=== PATIENT | female | born 1940 | race Caucasian/White ===

== ENCOUNTER 2019-10-22 09:43 | Emergency (ER) | payer MEDICARE, OTHER ==
[~2019-10-22] VITALS: Ht 147.3 cm; Wt 61.0 kg
[2019-10-22 09:52] VITALS: BP 110/66
[2019-10-22] MEDS ORDERED: TETanus/Pertussis (Acell)/Diphther VAC/PF (Tdap-Adult) 0.5ml syringe IMVAC ONE (10:00)
[2019-10-22] MEDS ORDERED: rabies vaccine (PCEC)/PF 2.5 unit kit IMVAC ONE (10:00)
[2019-10-22] MEDS ORDERED: LIDOcaine 1.5% w/epinephrine 1:200,000 5ml ampul IJ ONE (10:00)
[2019-10-22] MEDS ORDERED: rabies immune globulin/PF 150 unit/ml inj IMVAC ONE (10:00)
[2019-10-22] MEDS ORDERED: LIDOcaine 1% w/epiNEPHrine 1:200,000 30ml vial IJ ONE (10:15)
[2019-10-22] MEDS ORDERED: AMOX-422 PO (10:56)
== END 2019-10-22 11:48 | disposition home or self-care (01) ==
LOC: ER 09:43
DX: S81.812A Laceration without foreign body, left lower leg, initial encounter (principal); M79.662 Pain in left lower leg; Z79.2 Long term (current) use of antibiotics; W54.0XXA Bitten by dog, initial encounter; Y93.89 Activity, other specified; Y92.89 Other specified places as the place of occurrence of the external cause; Y99.8 Other external cause status
CPT/HCPCS: 12002; 90471; 90715; 99283

== ENCOUNTER 2019-10-24 11:30 | Day surgery (SDC) | payer MEDICARE, OTHER ==
[~2019-10-24 11:30] MED LIST: AMOX-422 PO
[2019-10-24] MEDS ORDERED: LIDOcaine 2% 5ml jelly ONE (12:02)
== END 2019-10-24 12:19 | disposition home or self-care (01) ==
LOC: WOUND CARE 11:30 → EDSTATUS 11:40 → WOUND CARE 12:19
PROVIDERS: ATTEND Nurse Practitioner
DX: S81.852A Open bite, left lower leg, initial encounter (principal); L97.222 Non-pressure chronic ulcer of left calf with fat layer exposed; S81.802A Unspecified open wound, left lower leg, initial encounter; Z79.2 Long term (current) use of antibiotics; W54.0XXA Bitten by dog, initial encounter; Y93.89 Activity, other specified; Y92.89 Other specified places as the place of occurrence of the external cause; Y99.8 Other external cause status
CPT/HCPCS: 97597

== ENCOUNTER 2019-10-30 08:50 | Day surgery (SDC) | payer MEDICARE, OTHER ==
[2019-10-30] MEDS ORDERED: LIDOcaine 2% 5ml jelly ONE (09:18)
== END 2019-10-30 09:59 | disposition home or self-care (01) ==
LOC: WOUND CARE 08:50
PROVIDERS: ATTEND Nurse Practitioner
DX: S81.852D Open bite, left lower leg, subsequent encounter (principal); L97.222 Non-pressure chronic ulcer of left calf with fat layer exposed; S81.802D Unspecified open wound, left lower leg, subsequent encounter; Z79.2 Long term (current) use of antibiotics; W54.0XXD Bitten by dog, subsequent encounter; X58.XXXD Exposure to other specified factors, subsequent encounter
CPT/HCPCS: 97597

== ENCOUNTER 2019-11-06 08:57 | Day surgery (SDC) | payer MEDICARE, OTHER ==
[2019-11-06] MEDS ORDERED: LIDOcaine 2% 5ml jelly ONE (09:07)
[2019-11-06] MEDS ORDERED: LIDOcaine 1% w/epiNEPHrine 1:200,000 30ml vial ONE (09:23)
== END 2019-11-06 09:59 | disposition home or self-care (01) ==
LOC: WOUND CARE 08:57
PROVIDERS: ATTEND Nurse Practitioner
DX: S81.852D Open bite, left lower leg, subsequent encounter (principal); L97.222 Non-pressure chronic ulcer of left calf with fat layer exposed; Z79.2 Long term (current) use of antibiotics; W54.0XXD Bitten by dog, subsequent encounter
CPT/HCPCS: 97597

== ENCOUNTER 2019-11-13 08:50 | Day surgery (SDC) | payer MEDICARE, OTHER ==
[2019-11-13] MEDS ORDERED: LIDOcaine 2% 5ml jelly ONE (09:08)
== END 2019-11-13 09:46 | disposition home or self-care (01) ==
LOC: WOUND CARE 08:50
PROVIDERS: ATTEND Nurse Practitioner
DX: S81.852D Open bite, left lower leg, subsequent encounter (principal); L97.222 Non-pressure chronic ulcer of left calf with fat layer exposed; Z79.2 Long term (current) use of antibiotics; W54.0XXD Bitten by dog, subsequent encounter
CPT/HCPCS: 15271; Q4196

== ENCOUNTER → 2019-11-20 | Day surgery (SDC) | payer MEDICARE, OTHER ==
[~2019-11-20] MED LIST changes: -AMOX-422 PO; +LIDOcaine 1% w/epiNEPHrine 1:200,000 30ml vial ONE; +LIDOcaine 2% 5ml jelly ONE
== END | disposition home or self-care (01) ==
LOC: WOUND CARE 10:05
PROVIDERS: ATTEND Nurse Practitioner
DX: S81.852D Open bite, left lower leg, subsequent encounter (principal); L97.222 Non-pressure chronic ulcer of left calf with fat layer exposed; Z79.2 Long term (current) use of antibiotics; W54.0XXD Bitten by dog, subsequent encounter
CPT/HCPCS: 97597

== ENCOUNTER 2019-11-27 08:53 | Day surgery (SDC) | payer MEDICARE, OTHER ==
[2019-11-27] MEDS ORDERED: LIDOcaine 1%/PF 5ML 10 MG/ML VIAL ONE (09:15)
== END 2019-11-27 10:25 | disposition home or self-care (01) ==
LOC: WOUND CARE 08:53
PROVIDERS: ATTEND Nurse Practitioner
DX: S81.852D Open bite, left lower leg, subsequent encounter (principal); L97.222 Non-pressure chronic ulcer of left calf with fat layer exposed; Z79.2 Long term (current) use of antibiotics; W54.0XXD Bitten by dog, subsequent encounter
CPT/HCPCS: 15271; Q4196

== ENCOUNTER 2019-12-03 11:40 | Day surgery (SDC) | payer MEDICARE, OTHER ==
[2019-12-03] MEDS ORDERED: LIDOcaine 1%/PF 5ML 10 MG/ML VIAL ONE (12:14)
== END 2019-12-03 12:45 | disposition home or self-care (01) ==
LOC: WOUND CARE 11:40
PROVIDERS: ATTEND Nurse Practitioner
DX: S81.852D Open bite, left lower leg, subsequent encounter (principal); L97.222 Non-pressure chronic ulcer of left calf with fat layer exposed; Z79.2 Long term (current) use of antibiotics; W54.0XXD Bitten by dog, subsequent encounter
CPT/HCPCS: 97597

== ENCOUNTER 2019-12-11 12:30 | Day surgery (SDC) | payer MEDICARE, OTHER | END 2019-12-11 13:43 | disposition home or self-care (01) | LOC: WOUND CARE 12:30 | PROVIDERS: ATTEND Nurse Practitioner | DX: S81.852D Open bite, left lower leg, subsequent encounter (principal); L97.222 Non-pressure chronic ulcer of left calf with fat layer exposed; Z79.2 Long term (current) use of antibiotics; W54.0XXD Bitten by dog, subsequent encounter | CPT/HCPCS: 97597 ==

== ENCOUNTER 2024-12-08 13:45 | Emergency (ER) | payer MEDICARE, OTHER ==
[~2024-12-08] VITALS: Ht 144.8 cm; Wt 59.1 kg
[2024-12-08 13:47] VITALS: TEMP 97.2
--- NOTE | 2024-12-08 13:57 | Physician Documentation ---
History of Present Illness ~ Chief Complaint: Head Injury Stated Complaint: FALL FROM LADDER Time Seen by MD: 14:36 OK to notify your PCP?: Yes HPI This is an 84-year-old female who presents with an injury to her left posterior head after a fall off a ladder, patient reports she was approximately 3 ft above the ground when she fell striking her left posterior head, patient reports that she was bleeding prior to arrival. Patient reports no loss of consciousness and reports she is not on blood thinners. Tetanus within 5 years?: No Medication Reconciliation Allergies: Uncoded Allergies: SENSITIVE TO PAIN MEDS (Adverse Reaction, Intermediate, SENSITIVE TO PAIN MEDS, 11/18/09) Past Medical History Past Medical History: No Pertinent History Past Surgical History: noncontributory Lives with: Spouse Lives In: Home Review of Systems ROS As stated above in the HPI, otherwise all systems are reviewed and negative. Physical Exam Vital Signs: Temperature: 97.2, Heart Rate: 85, Respiratory Rate: 18, BP: 129/69, Pulse Oximetry: 96, Weight: 59.090 Physical Exam Physical Exam Vitals and nursing note reviewed. Constitutional: General: Patient is awake, alert, oriented x 4 in no acute distress and well appearing. Speech is clear and lucid. Appearance: Normal appearance. Patient is not ill-appearing, toxic-appearing or diaphoretic. HENT: Head: Normocephalic and atraumatic. Mouth/Throat: Mouth: Mucous membranes are moist. Pharynx: Oropharynx is clear. Eyes: General: No scleral icterus. Extraocular Movements: Extraocular movements intact. Pupils: Pupils are equal, round, and reactive to light. Neck: Supple, no Kernig or Brudzinski sign. Cardiovascular: Rate and Rhythm: Normal rate and regular rhythm. Heart sounds: 3/6 systolic ejection murmur over the aortic area. Pulmonary: Effort: No respiratory distress. Breath sounds: Few expiratory wheezes both upper lobes Abdominal: General: There is no distension. Palpations: There is no fluid wave, hepatomegaly or mass. Tenderness: There is no abdominal tenderness. There is no guarding. Musculoskeletal: General: No swelling or deformity. Skin: Coloration: Skin is not jaundiced. Findings: No erythema or rash. Neurological: Mental Status: Patient is alert. Progress Results/Orders Results/Orders Completed Orders - FRANCIS LOPEZ MD Tetanus/Pertuss/Diph Acell/Pf (Boostrix (12/08/24 15:00) Medications Received in ER Medications (Trade) Dose Ordered Sig/April Route PRN Reason Start Time Stop Time Status Last Admin Dose Admin (Boostrix vaccine syringe) 0.5 ml ONCE ONCE IMVAC 12/08/24 15:00 12/08/24 15:01 DC 12/08/24 15:14 0.5 ML Vital Signs 12/08/24 12/08/24 13:47 14:43 Temp 97.2 Pulse 85 Resp 18 15 B/P (MAP) 129/69 Pulse Ox 96 Medical Decision Making Findings MSE performed in triage and patient returned to ED lobby by nursing staff to await available ED room, imaging ordered. This 84-year-old female fell off a 3 ft ladder with brief loss of consciousness, woke up on the floor. This happened about an hour ago. She has no other traumatic findings. There is an abrasion the left parietal area. She has a normal neurological examination at this time. Her tetanus status is unknown. CT scan of the brain is negative for acute findings. Departure Disposition: HOME / SELF CARE / HOMELESS Impression: Primary Impression: Concussion Condition: Stable Additional Instructions: You have been evaluated after a fall off a ladder. Fortunately, the CT scan of your head shows no acute findings in the brain. However, if you develop worsening symptoms or new/unusual symptoms do not hesitate to return here. Referrals: NO PRIMARY CARE PROVIDER (PCP) Education Educated: Patient, Family Educated regarding: diagnosis, treatment, need for follow up Signature Scribe Signature: . Attestation: . LITA CELIS Dec 08, 2024 13:57 FRANCIS LOPEZ MD Dec 08, 2024 14:58
--- NOTE | 2024-12-08 14:30 | RADIOLOGY REPORT ---
CT CT HEAD Indication: Fall from ladder with head strike EXAM DATE: 12/08/2024 02:05 PM COMPARISON: None TECHNIQUE: CT of the head without intravenous contrast. RADIATION DOSE: CTDIvol: 51 mGy, DLP: 127 mGy*cm FINDINGS: There is no intracranial hemorrhage. There is no extra-axial fluid, mass, mass effect or midline shift. The ventricles are midline and normal in size. Basilar cisterns are patent. There are mild periventricular and subcortical white matter chronic microvascular ischemic changes. Mild global cerebral volume loss. The paranasal sinuses and mastoids are well-pneumatized. Imaged portion of the orbits are unremarkable. IMPRESSION: No intracranial hemorrhage or mass effect. Mild chronic microvascular ischemic changes. Mild global cerebral volume loss.
--- NOTE | 2024-12-08 15:02 | RADIOLOGY REPORT ---
EXAM: CT CT CERVICAL SPINE INDICATION: Fall from ladder with head strike EXAM DATE: 12/08/2024 02:07 PM COMPARISON: None TECHNIQUE: Multiple axial CT images of the cervical spine were obtained using bone algorithm. Axial and coronal reformatting was done. Bone and soft tissue windows were reviewed. Radiation Dose Information: CT Dose: CTDI volume is 21.26 mGy. Dose-length product is 496.64 mGy*cm FINDINGS: 7 [id number] cervical type vertebrae. Straightening of the cervical lordosis. Vertebral body heights are maintained. No evidence of acute traumatic fractures or spondylolisthesis. Multilevel moderate to severe degenerative changes of the cervical spine. Mild right-sided neural foramina stenosis at C2-C3, severe left and Moderate to severe right-sided neural foramina stenosis at C3-C4, moderate right with moderate to severe left-sided neural foramina stenosis at C4-C5, moderate right with moderate to severe left-sided neural foramina stenosis at C5-C6, and moderate bilateral neural foramina stenosis at C6-C7 from uncovertebral hypertrophy and facet osteoarthritis. Moderate bilateral neural foramina stenosis at C7-T1. No significant spinal canal stenosis. 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 Focus of calcification over the right submandibular gland. IMPRESSION: No evidence of acute cervical spine fracture or traumatic malalignment.
[2024-12-08] MEDS: TETanus/Pertussis (Acell)/Diphther VAC/PF (Tdap-Adult) 0.5ml syringe IMVAC ONE (15:14)
[2024-12-08 16:09] VITALS: BP 124/59; PULSE 77; RESP 16; O2SAT 98
== END 2024-12-08 16:20 | disposition home or self-care (01) ==
LOC: ER 13:45
DX: S06.0X0A Concussion without loss of consciousness, initial encounter (principal); W11.XXXA Fall on and from ladder, initial encounter; Y93.89 Activity, other specified; Y92.89 Other specified places as the place of occurrence of the external cause; Y99.8 Other external cause status
CPT/HCPCS: 70450; 72125; 90715; 99285; A6402; G0008; 90471; A6449